=== PATIENT | male | born 1935 | race Caucasian/White ===

== ENCOUNTER 2018-12-06 20:08 | Inpatient (IN) | payer MEDICARE, OTHER | END 2018-12-13 10:57 | disposition home or self-care (01) | LOC: ER 20:08 → PCU 3S 12-07 02:55 | PROC: 4A02XM4 Measurement of Cardiac Total Activity, External Approach (ICD-10-PCS; principal; ~2018-12-06) | PROC: 3E033HZ Introduction of Radioactive Substance into Peripheral Vein, Percutaneous Approach (ICD-10-PCS; ~2018-12-06) | PROC: 5A2204Z Restoration of Cardiac Rhythm, Single (ICD-10-PCS; ~2018-12-06) | DX: I47.1 Supraventricular tachycardia (principal); I50.32 Chronic diastolic (congestive) heart failure; E83.52 Hypercalcemia; Z95.2 Presence of prosthetic heart valve ==

== ENCOUNTER 2024-02-26 11:33 | Emergency (ER) | payer OTHER, MEDICARE ==
[~2024-02-26] VITALS: Ht 167.6 cm; Wt 86.4 kg
[~2024-02-26 11:33] MED LIST: AMI200T PO; ATOR20TA66 PO; CHOL100024 PO; CHOL400C8 PO; COU7.5T PO; ENOX80SY24 SQ; FLO0.4C PO; LISI20TA28 PO; LOP25T PO; SYN0.088T PO; WARF10TA50 PO
[2024-02-26 12:24] LABS: ALBUMIN 3.5 G/DL (3.4-5.0); ANION GAP 8 (8-16); BASOPHILS % (AUTO) 0.1 % (0-1); BLOOD UREA NITROGEN 19 MG/DL (7-18); BUN/CREATININE RATIO 17.4 (10.0-20.0); CALCIUM 8.8 MG/DL (8.5-10.1); CHLORIDE 93 MMOL/L (99-107); CREATININE 1.09 MG/DL (0.60-1.10); EOSINOPHILS % (AUTO) 0.1 % (0-6); GLUCOSE 196 MG/DL (70-104); HEMATOCRIT 43.2 % (42.0-52.0); HEMOGLOBIN 14.3 g/dl (14.0-17.9); LYMPHOCYTES # (AUTO) 0.9 X10'3 (1.1-4.8); LYMPHOCYTES % (AUTO) 6.7 % (21-51); MEAN CORPUSCULAR HEMOGLOBIN 30.3 PG (27.0-31.0); MEAN CORPUSCULAR HGB CONC 33.2 g/dL (33.0-36.5); MEAN CORPUSCULAR VOLUME 91.3 FL (78-98); MEAN PLATELET VOLUME 8.6 FL (7.4-10.4); MONOCYTES # (AUTO) 0.6 X10'3 (0-0.9); MONOCYTES % (AUTO) 4.9 % (2-12); NEUTROPHILS # (AUTO) 11.4 X10'3 (1.8-7.7); NEUTROPHILS % (AUTO) 88.2 % (42-75); PLATELET COUNT 225 X10'3 (140-440); POTASSIUM 3.8 MMOL/L (3.5-5.1); RED BLOOD COUNT 4.73 X10'6 (4.70-6.10); RED CELL DISTRIBUTION WIDTH 16.6 % (11.5-14.5); SODIUM 126 MMOL/L (135-145); eCRCL 44 ML/MIN; eGFR 64 ML/MIN
[2024-02-26] MEDS: LidoCAINE 2% Topical Jelly 11mL syringe (UROJET) MM ONE (13:46)
[2024-02-26] MEDS ORDERED: iohexol 300mg/ml 100ml inj. ONE (14:27)
[2024-02-26 16:01] LABS: CLARITY,URINE CLOUDY (Clear); COLOR,URINE RED (Yellow)
[2024-02-26 16:02] LABS: INR 2.1 INR; PROTHROMBIN TIME 21.3 SECONDS (9.0-12.0)
[2024-02-26 16:04] LABS: UA COLLECTION TYPE URINAL
[2024-02-26 16:11] LABS: MUCUS STRANDS FEW /LPF (Neg); RBC,URINE TNTC /HPF (0-2); SQUAMOUS EPITHELIAL CELL,UR FEW /LPF (FEW)
[2024-02-26 16:12] LABS: WBC,URINE TNTC /HPF (0-4)
[2024-02-26 16:16] LABS: BACTERIA,URINE 2+ /HPF (Neg)
[2024-02-26] MEDS: cloNIDine 0.1 mg tablet PO ONE ×2 (17:07→22:03)
[2024-02-26] MEDS: CefTRIAXone 1000mg IM Kit (w/lidocaine diluent) IM ONE (17:15)
[2024-02-27 01:22] VITALS: BP 193/102; PULSE 75; RESP 21; TEMP 98.1; O2SAT 94
== END 2024-02-27 01:27 ==
LOC: ER 11:33
DX: R33.9 Retention of urine, unspecified (principal); I10 Essential (primary) hypertension; R31.9 Hematuria, unspecified; E87.1 Hypo-osmolality and hyponatremia; N39.0 Urinary tract infection, site not specified; I48.91 Unspecified atrial fibrillation; K21.9 Gastro-esophageal reflux disease without esophagitis; Z20.822 Contact with and (suspected) exposure to COVID-19; Z79.01 Long term (current) use of anticoagulants; Z79.899 Other long term (current) drug therapy; Z86.73 Personal history of transient ischemic attack (TIA), and cerebral infarction without residual deficits; Z90.49 Acquired absence of other specified parts of digestive tract; Z98.890 Other specified postprocedural states
CPT/HCPCS: 36415; 51702; 74177; 80048; 81001; 85025; 85610; 87077; 87088; 87186; 87811; 93005; 96372; 99285; J0696; Q9967; A4314

== ENCOUNTER 2024-03-01 21:32 | Emergency (ER) | payer OTHER, MEDICARE ==
[~2024-03-01] VITALS: Ht 165.1 cm; Wt 89.6 kg
[2024-03-02 02:05] LABS: BILIRUBIN,URINE NEGATIVE (Neg); CLARITY,URINE CLOUDY (Clear); GLUCOSE, URINE NEGATIVE (Neg); KETONES,URINE NEGATIVE (Neg); LEUKOCYTE ESTERASE ,URINE MODERATE (Neg); OCCULT BLOOD,URINE MODERATE (Neg); PROTEIN,URINE 30 mg/dl (Neg); UROBILINOGEN,URINE 0.2 E.U/dL (0.2-1.0)
[2024-03-02 02:09] LABS: UA COLLECTION TYPE FOLEY CATH
[2024-03-02 02:10] LABS: COLOR,URINE YELLOW (Yellow); NITRITES, URINE NEGATIVE (Neg)
[2024-03-02 02:14] LABS: BACTERIA,URINE FEW /HPF (Neg); RBC,URINE 50-100 /HPF (0-2); SQUAMOUS EPITHELIAL CELL,UR FEW /LPF (FEW); WBC CLUMPS,URINE FEW /HPF (NEGATIVE); WBC,URINE 20-30 /HPF (0-4)
[2024-03-02] MEDS ORDERED: LEVO-65 PO (02:41)
[2024-03-02] MEDS ORDERED: LEVO750T68 PO (02:50)
[2024-03-02] MEDS: levoFLOXACIN 750MG TABLET PO ONE (02:53)
[2024-03-02 03:04] VITALS: BP 149/70; PULSE 61; RESP 16; TEMP 98.2; O2SAT 99
== END 2024-03-02 03:06 | disposition home or self-care (01) ==
LOC: ER 21:33
DX: R33.9 Retention of urine, unspecified (principal); N39.0 Urinary tract infection, site not specified; I10 Essential (primary) hypertension; K21.9 Gastro-esophageal reflux disease without esophagitis; G45.9 Transient cerebral ischemic attack, unspecified; Z79.899 Other long term (current) drug therapy; Z79.2 Long term (current) use of antibiotics; Z90.49 Acquired absence of other specified parts of digestive tract
CPT/HCPCS: 81001; 87088; 99284; A5200